=== PATIENT | female | born 1970 | race American Indian/Alaskan Native ===

== ENCOUNTER 2019-08-06 07:32 | Day surgery (SDC) | payer BC, OTHER ==
[~2019-08-06] VITALS: Ht 162.6 cm; Wt 118.4 kg
--- NOTE | 2019-08-06 09:10 | NUR ---
08/06/19 0910 Sheets,Denise 0906 PT ARRIVED TO PACU ON 3L VIA NC, RESP EVEN AND UNLABORED. PT REORIENTED TO PACU THEN PT BACK TO SLEEP. SMALL AMOUNT OF SNORING NOTED.
--- NOTE | 2019-08-06 10:29 | OR ---
[facility] [address] [place], [place] [address] Signed DATE OF OPERATION: 08/06/2019 SURGEON: Gayathri Wynne MD PREOPERATIVE DIAGNOSIS: Screening. POSTOPERATIVE DIAGNOSES: 1. 10 mm sessile polyp at 60 cm (tattoo). 2. 5 mm polyp at 52 cm. 3. Iuksqeg-ju-ogzybbuv left-sided diverticulosis. PROCEDURE: Colonoscopy, hot biopsy and injection of tattoo at 60 cm. ESTIMATED BLOOD LOSS: None. INDICATIONS: Paty is a 49-year-old female, asked to see me for her initial screening colonoscopy. She has no lower GI complaints. There is no family history of colon cancer or polyps. I met with Paty in the office and I gave her a pamphlet on colonoscopy. She understands the nature of the test along with the risks including, but not limited to gas, bloating, crampy abdominal pain, bleeding, perforation requiring surgery, and missed diagnosis. She also understands the need for IV conscious sedation. She had expressed understanding and wished to proceed. PROCEDURE NOTE: Paty was taken into our endoscopy suite and placed in the left lateral decubitus position. She was given a total of 8 mg of Versed and 100 mcg of fentanyl to cover the case. A digital rectal exam was performed and this was unremarkable. The adult colonoscope was introduced and advanced all around into the cecum under direct visualization of camera without difficulty. Her prep was good. The scope was slowly withdrawn. We could easily see the appendiceal orifice and the ileocecal valve. We took pictures throughout for photodocumentation. The above-mentioned polyps were easily removed with the help of hot biopsy forceps. We did leave a small tattoo at 60 cm and marked that location. It is just on the distal edge of that polypectomy site. She also has diverticula in the left colon. They were [id number]-[id number] in number, moderate in size and scattered about. The rectum was unremarkable. Upon retroflexion of the scope, there was no additional pathology noted above the anal canal. After this, the gas was Electronically Signed By: GAYATHRI WYNNE MD 08/06/19 1029 PATIENT NAME: PATY MARCOS OPERATIVE REPORT DATE OF : 68 REPORT #: [id number] PHYSICIAN: GAYATHRI WYNNE MD PCP: TAYLER BOURGEOIS REPORT IS CONFIDENTIAL AND NOT TO BE RELEASED WITHOUT AUTHORIZATION [facility] [address] [place] [id number] Signed suctioned out and the colonoscope removed. Paty tolerated the procedure quite well. She did ask that I not speak to her afterwards. RECOMMENDATIONS: I will see Paty back in my office in 7 to 14 days to review her results. MD ANUPAM Snowden/YOUSIFL /[id number] cc: Tayler Bourgeois PA-C [facility] Gayathri Wynne MD Copies: GAYATHRI WYNNE MD ~ Electronically Signed By: GAYATHRI WYNNE MD 08/06/19 1029 PATIENT NAME: PATY MARCOS MAGALI OPERATIVE REPORT DATE OF : 68 REPORT #: [id number] PHYSICIAN: GAYATHRI WYNNE MD PCP: TAYLER BOURGEOIS REPORT IS CONFIDENTIAL AND NOT TO BE RELEASED WITHOUT AUTHORIZATION
--- NOTE | 2019-08-06 12:30 | NUR ---
PT ALERT, ORIENTED AND JUST A BIT ANXIOUS. THIS IS PTS' FIRST SCOPE. ASKED TO BE INFORMED OF WHAT TO EXPECT. GAVE OUTLINE, SEEMED TO HELP PT. OR STAFF IN TO TAKE PT-HAD PT DO CLEANSING BREATH AND EXTENDED A BLESSING. WILL FOLLOW NEEDED
--- NOTE | 2019-08-08 15:32 | PATH ---
[facility] [address] [place], [place] [address] Signed SPECIMEN(S): A COLON POLYP AT 60 CM SPECIMEN(S): B COLON POLYP AT 52 CM SPECIMEN SOURCE: A. COLON POLYP AT 60 CM B. COLON POLYP AT 52 CM CLINICAL HISTORY: Screening colonoscopy. MICROSCOPIC DESCRIPTION: Histologic sections of all submitted blocks are examined by light microscopy. These findings, together with the gross examination, support the pathologic diagnosis. FINAL PATHOLOGIC DIAGNOSIS: A. Mucosa, colon at 60 cm, biopsy: - Hyperplastic polyp. B. Mucosa, colon at 52 cm, biopsy: - Surface features suggestive but not entirely diagnostic for hyperplastic polyp (See comment). COMMENT: B Multiple sections over three slides are examined. Interpretation is complicated by focal marked heat type artifact. No adenomatous change or full thickness hyperplastic change is seen. LJA:cml:C2NR GROSS DESCRIPTION: Two specimens are received in two containers, labeled "SA." A. The specimen, labeled "SA, colon polyp at 60 cm," is received in formalin and consists of three pink-ceballos soft tissue fragments that measure 0.2 to 0.4 cm in greatest dimension. The specimen is entirely submitted in cassette (A1). B. The specimen, labeled "SA, colon polyp at 52 cm," is received in formalin and consists of two pink-ceballos soft tissue fragments that measure 0.2 to 0.3 cm in greatest dimension. The specimen is entirely submitted in cassette (B1). JS (under the direct supervision of a pathologist) The Gross Description was prepared using a voice recognition system. The report was reviewed for accuracy; however, sound-alike word errors, addition and/or deletions may occur. If there is any PATIENT NAME: PATY MARCOS PATHOLOGY DATE OF : 68 REPORT #: [id number] PHYSICIAN: STEPHANIE ANNE PCP: JANAY BOURGEOIS REPORT IS CONFIDENTIAL AND NOT TO BE RELEASED WITHOUT AUTHORIZATION [facility] [address] [place] [address] Signed question about this report, please contact Client Services. PERFORMING LABORATORY: The technical component was performed by [employer] [address] [place] [address] ([employer] Supervisor: Katlyn Munoz MD; CLIA# [id number]). [facility], [address] [address] ([employer] Supervisor: Vincent Dias MD; CLIA# [id number]). Diagnostician: Vincent Dias MD Pathologist Electronically Signed 08/08/2019 Copies: ~ PATIENT NAME: PATY MARCOS PATHOLOGY DATE OF : 68 REPORT #: [id number] PHYSICIAN: [facility] PCP: JANAY BOURGEOIS REPORT IS CONFIDENTIAL AND NOT TO BE RELEASED WITHOUT AUTHORIZATION
== END 2019-08-06 09:38 | disposition home or self-care (01) ==
LOC: DS 07:32 → OPS 07:32 → DS 09:00 → OPS 09:38
PROVIDERS: Colon & Rectal Surgery
PROC: 0DBE8ZZ Excision of Large Intestine, Via Natural or Artificial Opening Endoscopic (ICD-10-PCS; 2019-08-06)
PROC: 3E0H8GC Introduction of Other Therapeutic Substance into Lower GI, Via Natural or Artificial Opening Endoscopic (ICD-10-PCS; principal; 2019-08-06 09:00)
DX: Z12.11 Encounter for screening for malignant neoplasm of colon (principal); K63.5 Polyp of colon; K57.30 Diverticulosis of large intestine without perforation or abscess without bleeding; E66.01 Morbid (severe) obesity due to excess calories; F17.210 Nicotine dependence, cigarettes, uncomplicated; Z68.41 Body mass index [BMI] 40.0-44.9, adult
CPT/HCPCS: 99153; G0500; J2250; J3010; J7121